=== PATIENT | female | born 1930 | race Caucasian/White ===

== ENCOUNTER 2016-05-31 20:28 | Emergency (ER) | payer OTHER ==
[~2016-05-31] VITALS: Ht 157.5 cm; Wt 54.1 kg
[2016-05-31 20:33] VITALS: BP 219/79; TEMP 36.8; Ht 157.5 cm; Wt 54.1 kg
[2016-05-31] MEDS ORDERED: DIPHTHERIA/TETANUS/PERTUSSIS 0.5 ML SYR/VIAL IM. ONE (21:00)
--- NOTE | 2016-05-31 21:36 | EMERGENCY ROOM VISIT NOTE ---
ED Visit Note First contact with patient: 20:46 CHIEF COMPLAINT: Right second finger laceration HISTORY OF PRESENT ILLNESS: This 86-year-old female patient presents to the emergency department ambulatory after cutting the right second finger while trying to open a bottle of wine. The bleeding stopped shortly after the injury and there is no weakness or numbness of the area. Tetanus shot is not up-to- date. Full range of motion of the finger. The patient denies any pain. REVIEW OF SYSTEMS: A 6 system review of systems was completed with positives and pertinent negatives listed in the HPI. ALLERGIES: Horse serum MEDICATIONS: No chronic medications PMH: No significant past medical history. SOCIAL HISTORY: The patient was locally with family. PHYSICAL EXAM: Vital Signs: Reviewed Nurse's notes, vital signs stable. GENERAL : This is an 86-year-old female, in no acute distress, well-developed, well- nourished. SKIN: There is a is 0.5 cm long laceration to the medial aspect of the right second digit. It is superficial and the edges only mildly gape apart with traction, but lay well without traction. There is no foreign material in the wound and it looks clean. There is no active bleeding. No deep structures such as tendons or nerves are seen in the base of the wound. Extension and flexion of the finger is full and strong. Sensation to pain and light touch is intact. EMERGENCY DEPARTMENT COURSE: I examined the patient. Verbal consent was obtained to perform the procedure. The laceration was cleaned with betadine and sterile saline and there was no bleeding. The edges of the laceration were approximated and secured with 3 layers of Dermabond glue with good wound approximation. The patient tolerated the procedure well. The patient does report she The was told a long time ago that she had an allergy to the horse serum in the tetanus vaccine. I do not feel that this is an issue, as horse serum is not an ingredient in the Adacel vaccination. The patient also reports she has had tetanus vaccines since being told that. Patient was given a tetanus booster. The patient was discharged home in stable condition. DIAGNOSIS: Finger laceration Allergies Uncoded Allergies: "HORSE SERUM IN TET/DIP (Allergy, Unknown, 11/11/04) Vital Signs Date Time Temp Pulse Resp B/P Pulse Ox O2 Delivery O2 Flow Rate FiO2 05/31/16 21:39 75 18 98 Room Air 05/31/16 20:33 36.8 86 20 219/79 97 Room Air Medications Administered Medications (Trade) Dose Ordered Sig/Jonelle Route Start Time Stop Time Status Last Admin Dose Admin Diphtheria/ Pertussis/Tetanus Vacc (Adacel Inj) 0.5 ml ONCE ONCE IM. 05/31/16 21:00 05/31/16 21:01 DC 05/31/16 21:36 0.5 ML Departure Information Impression Primary Impression: Finger laceration Dispostion Home / Self-Care Condition GOOD Referrals Ulises Márquez D.OTatyana (PCP) Patient Instructions A Signature Page, ED Laceration Ext Skin Glue, [facility] Additional Instructions Read DermaBond handout. Ice and elevate for swelling and pain. Ibuprofen 600 mg and Tylenol 1000 mg every 6 hrs for pain. Return for any signs of infection ( increasing redness, swelling, drainage, fever). Keep covered when in sun until fully healed then SPF 50 or higher for one year. Vitamin E oil if desired two weeks after fully healed for reduction of scar.
[2016-05-31 21:39] VITALS: PULSE 75; O2SAT 98
== END 2016-05-31 21:43 | disposition home or self-care (01) ==
LOC: C.EDB 20:30 → C.EDD 21:43
DX: S61.210A Laceration without foreign body of right index finger without damage to nail, initial encounter (principal); W26.9XXA Contact with unspecified sharp object(s), initial encounter; Y93.G1 Activity, food preparation and clean up; Y92.89 Other specified places as the place of occurrence of the external cause; Y99.8 Other external cause status